=== PATIENT | female | born 1980 | race Caucasian/White ===

== ENCOUNTER 2019-06-03 00:24 | Day surgery (SDC) | payer OTHER, SELFPAY ==
[2019-06-01 08:28] VITALS: BMI 35.4
[2019-06-03 06:31] VITALS: BP 159/95; PULSE 80; RESP 18; TEMP 36.6; O2SAT 98
--- NOTE | 2019-06-03 06:39 | P.PNAN_ITS ---
Anes - Initial Pre Proc Eval Procedure: Operation Date: 06/03/19 07:30 Proposed Procedures p Esophagogastroduodenoscopy - Ran Biswas MD Date/Time: 06/03/19 06:39 Surgeon: Ran Biswas MD Pre Op Diagnosis: Dyshphagia Patient Data Age: 39 Gender: F Height: 5 ft 9 in Weight: 109 kg Last Vital Signs Temp 36.6 C 06/03/19 06:31 Pulse 80 06/03/19 06:31 Resp 18 06/03/19 06:31 BP 159/95 H 06/03/19 06:31 Pulse Ox 98 06/03/19 06:31 Allergies Allergy/AdvReac Type Severity Reaction Status Date / Time No Known Allergies Allergy Unknown Verified 06/03/19 06:28 Home Medications Medication Instructions Recorded Confirmed Type hdufaea-muwwduxjubgpa-sfsjkxze 2 tablet PO Q4-6H PRN 06/01/19 06/03/19 History [Excedrin Extra Strength] fexofenadine-pseudoephedrine 1 tablet PO QAM 06/01/19 06/03/19 History [Fabioal-D 24 Hour] ketorolac 10 mg PO DAILY PRN 06/01/19 06/03/19 History methocarbamol 750 mg PO DAILY PRN 06/01/19 06/03/19 History Patient hx anesthesia problems: none Family hx anesthesia problems: none [facility] Past Medical History Medical History (Updated 06/03/19 @ 06:42 by Tye Landaverde MD) Hx of migraines Anes - Eval Final PreProcedure Day of Procedure 06/03/19 06:39 Patient weight: obese Heart: regular rate and rhythm Lungs: clear to auscultation Airway: Mallampati scale class II Neurological: alert and oriented Last oral intake: >/= 8 hours ASA classification: II Emergent: no Anesthetic plan: proceed Anesthesia type and monitoring: general GIVS and standard monitoring Informed Consent: The patient's anesthetic plan and its attendant risks and benefits were discussed with the patient/family/POA. Questions were solicited and answers provided to the satisfaction of the patient/family/POA.
[2019-06-03] MEDS: LACTATED RINGERS 1,000 ML 150 ML IV CONT (06:42)
--- NOTE | 2019-06-03 07:01 | PM.HPGS ---
History of Present Illness History of Present Illness Consent: Risks, benefits, and alternatives have been discussed and questions answered. Patient agrees to proceed with procedure. Chief complaint: Dyshphagia Narrative: Deborah Garcia is a 39 year old W female Referred for EGD secondary to greater than 5 year history of intermittent dysphagia for both liquids and solids. Patient points to the cervical region. He states he is is probably worse with solids. She denies any significant heartburn or indigestion. No nausea vomiting hematemesis. She does take Excedrin and ibuprofen on a fairly regular basis for chronic headaches. She has had no weight loss. She had not been placed on any empiric therapy. No known food allergies. [facility] Past Medical History Medical History Hx of migraines Meds Home Medications and Allergies Home Medications Medication Instructions Recorded Confirmed Type hquhpro-tuzaiydfckvdg-wwomitma 2 tablet PO Q4-6H PRN 06/01/19 06/03/19 History [Excedrin Extra Strength] fexofenadine-pseudoephedrine 1 tablet PO QAM 06/01/19 06/03/19 History [Fabiola-D 24 Hour] ketorolac 10 mg PO DAILY PRN 06/01/19 06/03/19 History methocarbamol 750 mg PO DAILY PRN 06/01/19 06/03/19 History Allergies Allergy/AdvReac Type Severity Reaction Status Date / Time No Known Allergies Allergy Unknown Verified 06/03/19 06:28 Vital Signs Vital Signs - 24 hr 06/03/19 06:31 Temperature 36.6 C Pulse Rate 80 Respiratory Rate 18 Blood Pressure 159/95 H Pulse Oximetry 98 Exam Const: Orientation/consciousness: patient oriented x3 Resp: Auscultation: clear to auscultation bilaterally Cardio: Rate: regular rate Rhythm: regular rhythm Heart sounds: no murmurs GI: GI Palp: Yes Soft to palpation, No Tenderness to palpation present (GI), Yes No hepatosplenomegaly present and No Palpable mass present Auscultation: normal bowel sounds Neuro: General: patient oriented x3 and no focal motor deficits Extrem: General: no pedal edema Assessment and Plan Additional Plan EGD with possible esophageal dilatation for evaluation of dysphagia
[2019-06-03] MEDS: BENZOCAINE (*SP) 60 ML SPRAY CAN (HURRICAINE) 1 SPRAY MUCOUS MEM (07:23)
[2019-06-03 07:34] VITALS: BP 124/76; PULSE 82; RESP 21; O2SAT 98
[2019-06-03 07:44] VITALS: BP 104/85; PULSE 75; RESP 17; O2SAT 98
[2019-06-03 07:54] VITALS: BP 126/84; PULSE 74; RESP 16; O2SAT 99
== END 2019-06-03 08:10 | disposition home or self-care (01) ==
PROVIDERS: PCP Nurse Practitioner Family; Visit Provider Internal Medicine Gastroenterology
PROC: 0DJ08ZZ Inspection of Upper Intestinal Tract, Via Natural or Artificial Opening Endoscopic (ICD-10-PCS; CPT 43235; principal; 2019-06-03 07:30)
DX: R13.10 Dysphagia, unspecified (principal); K21.0 Gastro-esophageal reflux disease with esophagitis; K29.50 Unspecified chronic gastritis without bleeding; E66.9 Obesity, unspecified; Z68.35 Body mass index [BMI] 35.0-35.9, adult
CPT/HCPCS: 43239; 87081; 88305; J2704; J7120

== ENCOUNTER 2020-02-10 10:07 | Outpatient (CLI) | payer OTHER, SELFPAY ==
[2020-02-10 10:33] LABS: Hematocrit 34.3 % (37.0-47.0); Hemoglobin 10.9 g/dL (12.0-15.0)
== END 2020-02-10 10:08 | disposition home or self-care (01) ==
PROVIDERS: PCP Nurse Practitioner Family; Visit Provider Obstetrics & Gynecology
DX: N92.6 Irregular menstruation, unspecified (principal)
CPT/HCPCS: 36415; 85014; 85018

== ENCOUNTER 2020-02-12 01:06 | Outpatient (CLI) | payer OTHER, SELFPAY ==
[2020-02-12 20:27] LABS: SARS-CoV-2 RNA PCR Negative
== END 2020-02-12 01:07 | disposition home or self-care (01) ==
LOC: ANHCOVIDDT 01:07
PROVIDERS: PCP Nurse Practitioner Family; Visit Provider Obstetrics & Gynecology
DX: Z01.812 Encounter for preprocedural laboratory examination (principal); Z20.828 Contact with and (suspected) exposure to other viral communicable diseases
CPT/HCPCS: 87635; C9803; U0003

== ENCOUNTER 2020-02-15 00:40 | Day surgery (SDC) | payer OTHER, SELFPAY ==
[2020-02-03 14:15] VITALS: BMI 34.9
--- NOTE | 2020-02-10 07:47 | PM.IMHP ---
H&P: HPI History of Present Illness Date/Time: 02/10/20 07:47 Chief complaint: desires sterilization, irregular bleeding Narrative: Deborah Garcia is a 39 year old female 2 para 2 who is admitted for laparoscopic tubal ligation, hysteroscopy, dilatation curettage, and nerve ablation. She desires permanent irreversible sterilization. She also complains of heavy menstrual bleeding which has been refractory to medical therapy. Risks and benefits of these procedures were reviewed including but not exclusive of , aspiration pneumonia, bleeding, transfusion, perforation injury to bowel, bladder, ureters, or other internal organs with need for open laparotomy. She received the [employer]CO[employer] handout entitled sterilization for females, hysteroscopy, dilatation curettage, as well as the [facility]el[facility] nerve handout respectively. She had all questions answered. She asked to proceed Review of Systems Review of Systems: All systems reviewed & are unremarkable except as noted in HPI and below PMFSH Past Medical History Medical History Hx of migraines Social History Social History Smoking status: Never smoker Spiritual care concerns: No Meds Home Medications and Allergies Home Medications Medication Instructions Recorded Confirmed Type Fabiola-D 24 Hour 1 tablet PO QAM 06/01/19 02/03/20 History Excedrin Extra Strength 2 tablet PO Q4-6H PRN 06/01/19 02/03/20 History methocarbamol 750 mg PO DAILY PRN 06/01/19 02/03/20 History cholecalciferol (vitamin D3) 50 mcg PO DAILY 02/03/20 02/03/20 History [Vitamin D3] omeprazole 40 mg PO DAILY 02/03/20 02/03/20 History Allergies Allergy/AdvReac Type Severity Reaction Status Date / Time No Known Allergies Allergy Unknown Verified 02/03/20 14:16 Exam Const: General: no acute distress Eyes: General: appearance normal, both eyes and all related structures Neck: Neck: supple and no JVD Thyroid: thyroid normal Resp: Effort & Inspection: normal respiratory effort Auscultation: clear to auscultation bilaterally Cardio: Rate: regular rate Rhythm: regular rhythm GI: Inspection: non-distended GI Palp: Yes Soft to palpation, No Tenderness to palpation present (GI) and No Guarding due to palpation present (GI) Auscultation: normal bowel sounds : External Female Exam: normal external appearance Speculum Exam - Vagina: normal appearance of the vagina Speculum Exam - Cervix: normal appearance of the cervix Bimanual Exam- Adnexa, other: no masses Skin: General skin exam: no rashes or lesions noted Extrem: General: normal to inspection and no edema Psych: Mental Status: mental status grossly normal Affect: normal affect Assessment and Plan Additional Plan 1 of and with impression: Desires permanent sterilization and excessive bleeding Plan: Laparoscopic tubal ligation, hysteroscopy, dilatation curettage, the nerve ablation
[2020-02-15] VITALS (11 sets, daily range): BP systolic 108–145; BP diastolic 63–88; PULSE 75–103; RESP 14–20; TEMP 36.6–36.7; O2SAT 92–100
--- NOTE | 2020-02-15 06:12 | WPDHPUPDATE1 ---
History and Physical Update Update Date/Time: 02/15/20 06:12 History and Physical has been reviewed, including an updated exam of the patient. There are NO changes in the patient's condition. Risks, benefits, and alternatives have been discussed and questions answered. Patient agrees to proceed with procedure.
--- NOTE | 2020-02-15 08:16 | WPDANESEPPF ---
Anes - Initial Pre Proc Eval Procedure: Operation Date: 02/15/20 09:30 Proposed Procedures p Laparoscopic Bilateral Tubal Sterilization with Fallopian Rings - Tye Almazan MD s Hysteroscopy, Dilation and Curettage with Katy Ablation - Tye Almazan MD Date/Time: 02/15/20 08:16 Surgeon: Tye Almazan MD Pre Op Diagnosis: desires sterilization, irregular bleeding Patient Data Age: 39 Gender: F Height: 1.73 m Weight: 104.33 kg Allergies Allergy/AdvReac Type Severity Reaction Status Date / Time No Known Allergies Allergy Unknown Verified 02/03/20 14:16 Home Medications Medication Instructions Recorded Confirmed Type Fabiola-D 24 Hour 1 tablet PO QAM 06/01/19 02/15/20 History Excedrin Extra Strength 2 tablet PO Q4-6H PRN 06/01/19 02/15/20 History methocarbamol 750 mg PO DAILY PRN 06/01/19 02/15/20 History cholecalciferol (vitamin D3) 50 mcg PO DAILY 02/03/20 02/15/20 History [Vitamin D3] omeprazole 40 mg PO DAILY 02/03/20 02/15/20 History hydrocodone-acetaminophen 1 tablet PO Q6H PRN #30 tablet 02/15/20 Rx Patient hx anesthesia problems: none Family hx anesthesia problems: none PMFSH Past Medical History Medical History (Updated 02/15/20 @ 08:17 by Edison Hinojosa MD) Back pain Chronic GERD Hx of migraines Obesity Social History Social History Smoking status: Never smoker Spiritual care concerns: No Anes - Eval Final PreProcedure Day of Procedure 02/15/20 08:16 Patient weight: obese Heart: regular rate and rhythm Lungs: clear to auscultation and normal air movement Airway: Mallampati scale class II Neurological: alert and oriented Last oral intake: >/= 8 hours ASA classification: II Emergent: no Anesthetic plan: proceed Anesthesia type and monitoring: general ETT Informed Consent: The patient's anesthetic plan and its attendant risks and benefits were discussed with the patient/family/POA. Questions were solicited and answers provided to the satisfaction of the patient/family/POA.
[2020-02-15] MEDS: ACETAMINOPHEN 500 MG TABLET 1000 MG PO (08:19)
[2020-02-15] MEDS: LACTATED RINGERS 1,000 ML 30 ML IV CONT ×2 (08:20→10:19)
[2020-02-15] MEDS: KETOROLAC 15 MG/ML VIAL (*BKC) IV PUSH (08:47)
--- NOTE | 2020-02-15 10:14 | PM.PROC ---
Procedure Note - Detailed Date of procedure: 02/15/20 Pre-op diagnosis: desires sterilization, irregular bleeding Surgeon: Tye Almazan MD Postop diagnosis: Desires sterilization / irregular bleeding / endometrial polyp Procedure: Laparoscopic tubal ligation via silastic bands / hysteroscopy / dilatation curettage /polypectomy / endometrial ablation Anesthesia: General endotracheal EBL: 5cc Complications: None Findings: Normal-appearing ovaries and tubes. A mildly enlarged uterus. On hysteroscopy the uterus sounded to9.5cm. Thick endometrial tissue and a uterine polyp was seen Description of procedure: The patient was prepped and draped in the normal sterile fashion placed in the dorsal lithotomy position. Under excellent general endotracheal anesthesia weighted speculum placed posterior fornix of vagina. Anterior lip of the cervix grasped with a single-tooth tenaculum. The Lee's cannula inserted this is the cervix and attached to the single-tooth to be used later for uterine manipulation. Bladder was emptied of a large amount of clear urine. The weighted speculum was removed. Gloves were changed A supraumbilical incision made in the Veress needle passed in the abdomen. The abdomen filled with CO2 gas [id number]. The 5mm trocar advanced under direct visualization using the Optiview with no injury seen. The placed was placed in Trendelenburg. A suprapubic incision made the 8mm trocar advanced under direct visualization assuring no injury. The right fallopian tube was grasped and a good knuckle of tube formed with excellent blanching. The left fallopian tube was then grasped at its midportion a good knuckle of tube formed with excellent blanching. [id number] of serosanguineous fluid was seen and this was section from the pelvis. No other abnormalities were seen. The gas removed from the abdomen. The trocars removed. The incisions closed with 4 O Monocryl and glue. Attention was turned to the hysteroscopy. The uterus sounded to9.5cm. Serial dilatation with fragmented dilators performed followed by passes the 5mm visualizing hysteroscope using normal saline with visualizing medium. Thick endometrial tissue was seen and a uterine polyp was seen. The uterine polyp forceps remover was placed in the uterus and the polyp removed piecemeal. The uterus was then scraped over the entire 360? until a good grating sound was heard. When no further tissue could be removed the pia instrument was placed in the uterus. The uterus was burned for 120seconds. The instrument was removed. The hysteroscope was reinserted and a good burn was noted and 40 documentation. The instruments removed. All sponge, needle, instrument counts were correct. There were no immediate complications
--- NOTE | 2020-02-15 10:18 | SUR.OPER ---
100 hysteroscopy fluis in and 50 out
[2020-02-15] MEDS: fentaNYL CITRATE INJ (*CRX) 100 MCG/2 ML VIAL 25 MCG IV PUSH ×3 (10:33→11:03)
--- NOTE | 2020-02-15 10:55 | SUR.PHASEI ---
02 removed at 1050.
[2020-02-15] MEDS: ONDANSETRON INJ 4 MG/2 ML VIAL IV PUSH (11:40)
[2020-02-15] MEDS: SCOPOLAMINE 1.5 MG PATCH TRANSDERM (12:05)
[2020-02-15] MEDS: HALOPERIDOL LACTATE 5 MG/ML VIAL 1 MG IV PUSH (12:15)
== END 2020-02-15 13:39 | disposition home or self-care (01) ==
PROVIDERS: PCP Nurse Practitioner Family; Visit Provider Obstetrics & Gynecology
PROC: (CPT 58671; principal; 2020-02-15 09:30)
PROC: 0U5B8ZZ Destruction of Endometrium, Via Natural or Artificial Opening Endoscopic (ICD-10-PCS; CPT 58563; 2020-02-15 09:30)
DX: Z30.2 Encounter for sterilization (principal); N92.6 Irregular menstruation, unspecified; N84.0 Polyp of corpus uteri; K21.9 Gastro-esophageal reflux disease without esophagitis; E66.9 Obesity, unspecified; Z68.34 Body mass index [BMI] 34.0-34.9, adult; Z79.899 Other long term (current) drug therapy
CPT/HCPCS: 58671; 58563; 88305; A4264; A9270; J0330; J1100; J1630; J1885; J2250; J2405; J2704; J3010; J7030; J7120

== ENCOUNTER 2021-02-07 08:54 | Outpatient (CLI) | payer OTHER, SELFPAY ==
[2021-02-07 10:07] LABS: Basophils Absolute Auto 0.1 K/mm3 (0.0-0.1); Eosinophils Absolute Auto 0.2 K/mm3 (0-0.3); Eosinophils Percent Auto 2.8 % (0-4.4); Hematocrit 35.2 % (37.0-47.0); Hemoglobin 11.6 g/dL (12.0-15.0); Immature Granulocyte Absolute 0.02 K/mm3 (0.00-0.031); Immature Granulocyte Percent A 0.3 % (0-0.5); Lymphocytes Absolute Auto 1.48 K/mm3 (0.9-3.2); Lymphocytes Percent Auto 24.5 % (18.3-44.2); Mean Corpuscular Hemoglobin 27.6 pg (26-34); Mean Corpuscular Volume 83.8 fl (80-100); Mean Platelet Volume 10.3 fl (7.4-10.4); Monocytes Absolute Auto 0.5 K/mm3 (0.1-0.6); Monocytes Percent Auto 7.9 % (2.6-8.5); Neutrophils Absolute Auto 3.8 K/mm3 (1.3-6.7); Neutrophils Percent Auto 63.5 % (45.5-73.1); Platelet Count Result 253 k/mm3 (150-375); Red Cell Distribution Width 12.7 % (11.5-14.5); White Blood Count 6.1 K/mm3 (4.5-10.0)
[2021-02-07 10:31] LABS: Rheumatoid Factor < 8.6 IU/ML (<12)
[2021-02-07 10:32] LABS: Alanine Aminotransferase 19 U/L (4-35); Albumin Level 4.3 g/dL (3.5-5.1); Alkaline Phosphatase 49 U/L (38-126); Anion Gap 9 mmol/L (8-16); Aspartate Amino Transferase 22 U/L (14-36); Bilirubin,Total 0.3 mg/dL (0.2-1.3); Blood Urea Nitrogen 13 mg/dL (7-17); CRP < 0.5 mg/dL (<1.0); Calcium 9.3 mg/dL (8.4-10.2); Carbon Dioxide 26 mmol/L (22-30); Chloride 105 mmol/L (98-107); Cholesterol 168 mg/dL (0-200); Estimated Glomerular Filt Rate > 60; Glucose 93 mg/dL (65-110); HDL Direct 45 mg/dL; Sodium 140 mmol/L (137-145); Triglycerides 108 mg/dL (<150); Uric Acid 2.9 mg/dL (2.5-7.5)
[2021-02-07 10:41] LABS: LDL Cholesterol Direct 92 mg/dL
[2021-02-07 10:54] LABS: Vitamin D 25 Hydroxy 29.8 ng/mL
[2021-02-07 11:18] LABS: Erythrocyte Sedimentation Rate 15 mm/hr (0-20)
[2021-02-07 12:05] LABS: Hemoglobin A1C 5.1 % (<5.7)
[2021-02-07 12:20] LABS: Folic Acid 5.1 ng/mL (2.76->20)
== END 2021-02-07 08:55 | disposition home or self-care (01) ==
PROVIDERS: PCP Nurse Practitioner Family; Visit Provider Nurse Practitioner Family
DX: M25.50 Pain in unspecified joint (principal); Z13.0 Encounter for screening for diseases of the blood and blood-forming organs and certain disorders involving the immune mechanism; Z13.1 Encounter for screening for diabetes mellitus; Z13.29 Encounter for screening for other suspected endocrine disorder; Z13.9 Encounter for screening, unspecified
CPT/HCPCS: 36415; 80053; 80061; 82306; 82607; 82746; 83036; 84443; 84550; 85025; 85652; 86038; 86140; 86430

== ENCOUNTER 2021-04-03 07:51 | Outpatient (CLI) | payer OTHER, SELFPAY ==
--- NOTE | ~2021-04-03 | XR_ITS ---
EXAMINATION: XR lumbar spine 2-3V DATE: 04/03/2021 08:10 INDICATION: Right posterior low back pain TECHNIQUE: Anteroposterior and lateral views of the lumbar spine, and cone-down lateral view of the l umbosacral junction were obtained. COMPARISON: None. FINDINGS: 14 degree dextro scoliosis measured between L1 and L4. 3 mm retrolisthesis L2 on L3. Chronic appearin g mild anterior wedging at T11. More caudal vertebral body heights are normal. Mild to moderate disc height loss at T10-T11, T11-T12 and L2-L3. Mild disc height loss at T12-L1, L1-L2, L4-L5 and L5-S1. S acrum and bilateral sacroiliac joints are normal. Couple round likely tubal ligation rings in the lef t and right pelvis. Bowel gas pattern is unremarkable. IMPRESSION: 1. 14 degree lumbar dextroscoliosis with mild to moderate lumbar and lower thoracic spondylosis. Reviewed, dictated and finalized at [facility]. UCT AMBASSADOR IMPRESSION: 1. 14 degree lumbar dextroscoliosis with mild to moderate lumbar and lower thor acic spondylosis.
== END 2021-04-03 07:52 | disposition home or self-care (01) ==
LOC: ANHIMG 07:54
PROVIDERS: PCP Nurse Practitioner Family; Visit Provider Nurse Practitioner Family
DX: M47.894 Other spondylosis, thoracic region (principal); M47.896 Other spondylosis, lumbar region
CPT/HCPCS: 72100

== ENCOUNTER 2021-05-02 07:59 | Outpatient (CLI) | payer OTHER, SELFPAY ==
--- NOTE | ~2021-05-02 | MM_ITS ---
EXAMINATION: MM screening federico BI w bri HISTORY: Screening mammogram TECHNIQUE: Craniocaudal and mediolateral oblique 3-D tomosynthesis images were obtained and synthetic 2-D images were generated. CAD analysis was submitted and interpreted. COMPARISON: No prior mammogram is available for comparison at this institution. BREAST PARENCHYMAL COMPOSITION: The breasts are heterogeneously dense, which may obscure small masses . FINDINGS: There is no evidence of suspicious mass, calcification, or architectural distortion to sugg est malignancy in either breast. IMPRESSION: 1. No mammographic evidence of malignancy. 2. Recommend routine screening mammography in one year. BI-RADS Category 1: Negative Reviewed, dictated and finalized at location A. ITORY SALES MANAGER
== END 2021-05-02 08:00 | disposition home or self-care (01) ==
PROVIDERS: PCP Nurse Practitioner Family; Visit Provider Nurse Practitioner Family
DX: Z12.31 Encounter for screening mammogram for malignant neoplasm of breast (principal)
CPT/HCPCS: 77063; 77067

== ENCOUNTER 2021-07-04 08:30 | Outpatient (RCR) | payer OTHER, SELFPAY ==
--- NOTE | 2021-05-15 10:50 | PTOPEVAL ---
PHYSICAL THERAPY INITIAL EVALUATION. Thank you for referring Deborah Garcia to [facility].? The patient is scheduled to be seen for therapy? 1x/week for 4 weeks. Please review, sign, date and return this plan of care SAAD. I agree with and certify that the following plan of care is medically necessary. Referring Physician Date Attending Provider: Tess Maldonado, LOAN SERVICE OFFICER-BC Diagnosis Dextroscoliosis Onset Apr Subjective Information Pt states she has a history of Query Text:As Reported By Patient/ scoliosis. She reports she Family hurt her back in April of 2019 during an exercise program at home. She states it started out at a tightness that she contributed to her exercise program. She states prior to this she was going HIIT style exercises and since then has just been doing body weight exercises. Pt reports the tightness is still present in her back, primarily the right side, sometimes this catches her during movements. She states in the last year she has also been having a lot of joint pain all over her body with a new increase in her hands and feet, a inflammatory marker assessment was done and this was negative for autoimmune involvement. 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 Pt states she wakes up at night due to pain and stiffness when trying to readjust in bed. Pt states she has been having severe migraines where the pain is so severe she is nausea from it. Pain Assessment Neck Reported Pain Level 1 Pain Description Aching,Tightness Pain Frequency Intermittent Lowest Pain Intensity
--- NOTE | 2021-06-12 08:45 | PTOPEVAL ---
PHYSICAL THERAPY PROGRESS NOTE. Thank you for referring Deborah Garcia to [facility].? The patient is scheduled to be seen for therapy? 1x/week for 4 weeks. Please review, sign, date and return this plan of care SAAD. I agree with and certify that the following plan of care is medically necessary. Referring Physician Date Attending Provider: Tess Maldonado, DRILL DOCTOR-BC *PT Outpatient Evaluation Start: 05/15/21 Evaluation Information Subjective Information Pt states her back pain is Query Text:As Reported By Patient/ almost completely gone, that Family her neck pain is still what has been bothering her. She states this previously week has been her best for her next pain. Pt states she thinks thinks the dry needling and addition of new stretches last week has helped, she also mentioned she has had a light case load at work. Pt states she did have a back spasm on Saturday and it still feels a little tight today. Pt report she has not had a migraine in the last 2 weeks. Pain Assessment Neck Reported Pain Level 1 Pain Description Tightness Greatest Pain Intensity 5 Right Lower Back Reported Pain Level 1 Pain Description Tightness Interventions Used Interventions Used By Clinicians Dry Needling Cervical and Lumbar ROM Active Cervical ROM Cervical Flexion (0-60) 60 Cervical Extension (0-70) 55 Cervical Lateral Flexion Right (0-50) 28 Cervical Lateral Flexion Left (0-50) 38 Cervical Rotation Right (0-90) 60 Cervical Rotation Left (0-90) 45 Cervical ROM 75% of Normal Cervical ROM Comments NO pain reports with ROM Lumbar ROM Lumbar Flexion Active Floor Lumbar Extension (0-40) 35 Lateral Flexion 3 inch above lateral knee Query Text:Active Hands to: joint line bilaterally. Pulling sensation in R lumbar spine with both movements Lateral Rotation Right (0-45) 35 Lateral Rotation Left (0-45) 35 Lumbar ROM 75% of Normal Lumbar Comments Pain with lumbar extension present on the R side PT Clinical Summary Deborah present to therapy today for her 4 week re- assessment. She reports other
--- NOTE | 2021-07-10 08:40 | PCPTNOTE ---
Patient called & cancelled scheduled progress report this date due to her daughter being sick. She states she is going to call back to reschedule.
--- NOTE | 2021-07-31 12:58 | PCPTNOTE ---
Called patient to follow up and left a voicemail. She has not called to reschedule her re-evaluation. Left message stating that if she does not call within a week to schedule she will be discharged.
--- NOTE | 2021-08-07 14:39 | PCPTNOTE ---
Attending Provider: Tess Maldonado, FACTORY MANAGER-BC Patient:Deborah Garcia Date of :1980 Patient has not returned for any further treatments since 07/04/2021, therefore she will be discharged at this time. Patient?s initial visit was on 05/15/2021 09:15 and she had a total of 7 visits. Thank you for referring this patient to [facility]. Please review, sign, date and return this discharge summary SAAD. I have been updated about the patient's current status and I agree with discharge from the above service at this time. Referring Physician Date
== END 2021-08-08 10:46 | disposition home or self-care (01) ==
LOC: ANHPT 08:30
PROVIDERS: PCP Nurse Practitioner Family; Visit Provider Nurse Practitioner Family
DX: M41.9 Scoliosis, unspecified (principal)
CPT/HCPCS: 20560; 97014; 97110; 97112; 97140; 97161; G0283

== ENCOUNTER 2021-07-14 07:58 | Outpatient (CLI) | payer OTHER, SELFPAY ==
--- NOTE | 2021-07-18 16:51 | WPDHOMESLEEP ---
Sleep Study - Home Unattended Date of Study: 07/14/21 Ordering Provider: Tess Maldonado, CONCESSION WORKER- Interpreting Provider: Sherrie Sales, DO Home Sleep Study Type: Watch PAT Height: 1.73 m Weight: 102.058 kg Body Mass Index: 34.2 Neck Circumference (inches): 15 Nelson: 11 Reason for Sleep Study Unrefreshing sleep and daytime hypersomnia. Sleep History The patient is a 41-year-old female with seasonal allergies, vitamin-D deficiency, lumbago, dextroscoliosis and lower extremity edema that had a home sleep test ordered by her primary care due to unrefreshing sleep. 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 The patient rarely awakens from sleep short of breath. She rarely awakens at night with heartburn, belching or cough. She constantly snores loud enough that others complain. She denies having trouble sleeping when she has a cold. She rarely wakes up gasping for air throughout the night. She occasionally has breathing problems at night observed by herself or others. She occasionally sweats excessively at night. She denies heart palpitations or irregular heartbeats during the night. She frequently falls asleep during the day but never while driving. She denies sleep paralysis and cataplexy. She frequently has vivid dreamlike scenes upon awakening or falling asleep. She denies having trouble at work due to sleepiness. She denies feeling afraid of going to sleep. She frequently has nightmares. She frequently remembers her dreams. She occasionally has thoughts racing through her mind. She rarely feels sad or depressed. She occasionally has anxiety. She constantly has muscular tension. She denies noticing parts of her body jerk. She denies kicking during the night. She frequently has crawling and aching feelings in her legs and occasionally has leg pain during the night. She denies grinding her teeth during sleep awakening with morning jaw pain. She is frequently bothered by pain during the day and occasionally awakened by pain during the night. He occasionally wakes up feeling stiff the morning with sore or achy muscles. She frequently wakes up with pain in the neck, spine and other joints. She goes to bed at midnight on weekdays and 10:00 a.m. on the weekends. It takes her a few minutes to fall asleep. She wakes up 1-3 times throughout the night. When she awakens, she will read, watch TV or do laundry. She wakes up at 4:00 a.m. on weekdays and 5:00 p.m. on the weekends. She typically gets 4-6 hours of sleep per night time she will stay in bed for a few minutes after waking up. She currently lives with her and 2 kids. She works midnights on the weekend and switches back to a day schedule on her days off. She denies consuming any caffeinated beverages within 2 hours of bedtime. She does not engage in physical exercise before bedtime. She will read watch television before falling asleep. She will take naps in the afternoon or the evening but they are not refreshing. She drinks 1-3 caffeinated beverages per day. She denies tobacco, alcohol recreational drug use. [facility] Past Medical History Medical History Back pain Chronic GERD Hx of migraines Obesity Social History Social History Smoking status: Never smoker Spiritual care concerns: No Medications Home Medications Medication Instructions Recorded Confirmed Type Fabiola-D 24 Hour 1 tablet PO QAM 06/01/19 02/15/20 History Excedrin Extra Strength 2 tablet PO Q4-6H PRN 06/01/19 02/15/20 History methocarbamol 750 mg PO DAILY PRN 06/01/19 02/15/20 History cholecalciferol (vitamin D3) 50 mcg PO DAILY 02/03/20 02/15/20 History [Vitamin D3] omeprazole 40 mg PO DAILY 02/03/20 02/15/20 History hydrocodone-acetaminophen 1 tablet PO Q6H PRN #30 tablet 02/15/20 Rx Sleep Procedure The sleep study was completed using [employer]
[2021-07-18 17:06] VITALS: BMI 34.2
== END 2021-07-18 12:13 | disposition home or self-care (01) ==
LOC: ANHCSM 08:00
PROVIDERS: PCP Nurse Practitioner Family; Visit Provider Nurse Practitioner Family
DX: G47.33 Obstructive sleep apnea (adult) (pediatric) (principal)
CPT/HCPCS: 95800

== ENCOUNTER 2021-08-08 07:27 | Outpatient (CLI) | payer OTHER, SELFPAY ==
[2021-08-08 08:00] LABS: Hematocrit 36.5 % (37.0-47.0); Hemoglobin 11.7 g/dL (12.0-15.0); Mean Corpuscular HGB Conc 32.1 g/dl (32-36); Mean Corpuscular Hemoglobin 27.5 pg (26-34); Mean Corpuscular Volume 85.9 fl (80-100); Platelet Count Result 283 k/mm3 (150-375); Red Blood Count 4.25 M/mm3 (4.2-5.4); Red Cell Distribution Width 12.4 % (11.5-14.5); White Blood Count 8.7 K/mm3 (4.5-10.0)
[2021-08-08 08:44] LABS: Iron 53 ug/dL (37-170)
[2021-08-08 08:54] LABS: Percent Iron Saturation 11 % (20-50)
[2021-08-08 09:19] LABS: Folic Acid 6.5 ng/mL (2.76->20)
== END 2021-08-08 07:28 | disposition home or self-care (01) ==
LOC: ANHLAB 07:33
PROVIDERS: PCP Nurse Practitioner Family; Visit Provider Nurse Practitioner Family
DX: G47.33 Obstructive sleep apnea (adult) (pediatric) (principal)
CPT/HCPCS: 36415; 82607; 82728; 82746; 83540; 83550; 85027

== ENCOUNTER 2022-05-12 11:08 | Outpatient (CLI) | payer OTHER, SELFPAY ==
--- NOTE | ~2022-05-12 | MM_ITS ---
EXAMINATION: MM screening federico BI w bri HISTORY: Screening mammogram TECHNIQUE: Craniocaudal and mediolateral oblique 3-D tomosynthesis images were obtained and synthetic 2-D images were generated. CAD analysis was submitted and interpreted. COMPARISON: No prior mammogram is available for comparison at this institution. BREAST PARENCHYMAL COMPOSITION: The breasts are heterogeneously dense, which may obscure small masses . FINDINGS: There is no evidence of suspicious mass, calcification, or architectural distortion to sugg est malignancy in either breast. There has been no suspicious interval change. IMPRESSION: 1. No mammographic evidence of malignancy. 2. Recommend routine screening mammography in one year. BI-RADS Category 1: Negative Reviewed, dictated and finalized at location A. NE BUILDUP MECHANIC
== END 2022-05-12 11:09 | disposition home or self-care (01) ==
LOC: ANHIMG 11:10
PROVIDERS: PCP Nurse Practitioner Family; Visit Provider Nurse Practitioner Family
DX: Z12.31 Encounter for screening mammogram for malignant neoplasm of breast (principal)
CPT/HCPCS: 77063; 77067

== ENCOUNTER → 2022-11-09 12:27 | Outpatient (CLI) | payer OTHER, SELFPAY ==
--- NOTE | ~2022-11-09 | MR_ITS ---
MRI of the lumbar spine Clinical History: Sciatica Technique: Axial T2-weighted images, and sagittal T1-weighted, T2-weighted, and and T2 fat-sat images were acquired. Findings: No fracture. There is minimal grade 1 retrolisthesis of L2 over L3. No suspicious bone junior ow signal reality seen. At L1-L2, there is no disc bulge or herniation. There is moderate facet arthropathy. No spinal canal stenosis or neural foraminal narrowing. At L2-L3, there is moderate degenerative disc narrowing. There is minimal disc bulge and mild facet a rthropathy. No central canal stenosis or neural foraminal narrowing. At L3-L4, there is no disc bulge or herniation. No spinal canal stenosis or neural foraminal narrowin g. At L4-L5, there is no disc bulge or herniation. There is no spinal canal stenosis or neural foraminal narrowing. At L5-S1, there is right paracentral disc protrusion. No spinal canal stenosis or neural foraminal na rrowing. There may be focal impingement of the descending right S1-S2 level nerve root by the disc pr otrusion. Paravertebral soft tissues are unremarkable. Impression: Right paracentral disc protrusion at L5-S1, which probably focally impinges the descending right S1-S 2 level nerve root. Minimal grade 1 retrolisthesis of L2 over L3. Reviewed, dictated and finalized at [facility]. Impression: Right paracentral disc protrusion at L5-S1, which probably focally impinges the descending right S1-S2 level nerve root. Minimal grade 1 retrolisthesis of L2 over L3.
== END ==
PROVIDERS: PCP Nurse Practitioner Family; Visit Provider Nurse Practitioner Family
DX: M54.41 Lumbago with sciatica, right side (principal); M51.27 Other intervertebral disc displacement, lumbosacral region; M43.16 Spondylolisthesis, lumbar region
CPT/HCPCS: 72148

== ENCOUNTER 2023-05-09 08:00 | Outpatient (RCR) | payer OTHER, SELFPAY ==
--- NOTE | 2023-04-04 08:44 | PTOPEVAL1 ---
Assessment and note entered by Ariel Bee Evaluation Information Assessment Status Evaluation Diagnosis low back pain Onset 07/07/22 Subjective Information Pt. reports that she was bathing a pt. at work and developed pain in the back in July. She states that the pain has progressed into the right leg. Pain can radiate to the foot. She states that her pain is constant. She reports that pain is worsened with sitting down. She recalls nothing specific that will ease her pain. She reports that being on her feet for 1 hour will also result in an increase in pain. She describes her pain into the right l.e. as a sharp ache. She states that on severe flare ups the leg will become weak. She has undergone MRI which revealed a disc protrusion. 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 She reports she is fearful of having to bend forward. Usual household activities, such as sweeping and mopping have also become difficult . She reports that her goal for therapy is to reduce her leg pain. Reported Pain Level Pain Score 3: Self Report Assessment PT Clinical Summary Pt. is a 43 year old female who enters the clinic with low back pain with right l.e. radiculopathy. She is provided extension category exercises on this date. She currently presents with proximal l. e. weakness, abdominal weakness, impaired postural awareness, impaired flexibility and pain. Continued skilled PT is indicated in order to improve these areas to allow the pt. to be able to complete all IADL's with improved comfort and efficiency. Plan of Care Interventions Electrical Stimulation,Hot Pack/Cold Pack,Manual Therapy,Mechanical Traction,Neuro Re-education, Patient/Caregiver Educati,Therapeutic Activities, Therapeutic Exercise PT Services Indicated Yes Treatment Frequency and 2x/week x 10 visits Duration These treatments will address the objective and functional deficits as defined above. The patient will be advanced safely and appropriately in order for the patient to progress towards his/her prior level of function. Additional exercises will be introduced and as well as a comprehensive home exercise program upon discharge, if needed, ?to ensure carryover of functional gains achieved in the clinic. This treatment plan has been reviewed and agreement upon by the patient.
--- NOTE | 2023-04-04 08:45 | OPREHPOC ---
Outpatient Therapy Plan of Care This is a Multidisciplinary Plan of Care that may contain components documented by all disciplines (PT, OT, and ST.) PT Problem 1 PT Problem #1 Knowledge Deficit PT Goal 1 Goal Pt. will be independent with a HEP focusing on extension category activities. Target Visit 2 PT Problem 2 PT Problem #2 Pain PT Goal 1 Goal Pt. will report pain levels at 4/10 at worst in a 2 week period. Target Visit 10 PT Problem 3 PT Problem #3 Impaired Flexibility PT Goal 1 Goal Pt. will present with 15 degrees or less with the 90/90 test on the right. Target Visit 10 PT Problem 4 PT Problem #4 Impaired Functional Mobil PT Goal 1 Goal Pt. will demonstrate safe mechanics with floor to waist lift x 10 reps with object weight 15-20#. Target Visit 10 PT Goal 2 Goal Pt. will provided subjective reports of being able to stand for duration of 1 hour without symptoms noted into the right l.e. Target Visit 10
--- NOTE | 2023-05-09 08:58 | PTOPPROGNS ---
Assessment and note entered by Ariel Bee Discharge Information Assessment Status discharge Diagnosis low back pain Onset 07/07/22 Subjective Information Pt. reports that her status hasn't changed much. She reports that she does notice that she does feel better when she is more consistent with her stretching activities, but has had a busy schedule this week and has been a little less consistent. She continues to describe her pain radiating into the right buttock. She states that she is not taking ibuprofen as often and states that pain frequency has decreased. She is doing chiropractic adjustments once a month as well. Assessment PT Clinical Summary Pt. demonstrates decrease in pain reports in regards to frequency and intensity. She has been educated regarding safe body mechanics and currently has a comprehensive HEP. At this time she is encouraged to continue with her HEP and will be discharged from our care. Plan of Care PT Services Indicated Treatment Frequency and D/C from PT to an independent HEP. Duration These treatments will address the objective and functional deficits as defined above. The patient will be advanced safely and appropriately in order for the patient to progress towards his/her prior level of function. Additional exercises will be introduced and as well as a comprehensive home exercise program upon discharge, if needed, ?to ensure carryover of functional gains achieved in the clinic. This treatment plan has been reviewed and agreement upon by the patient.
== END 2023-05-22 14:57 | disposition home or self-care (01) ==
LOC: ANHPT 08:00
PROVIDERS: PCP Nurse Practitioner Family; Visit Provider Pain Medicine Pain Medicine
DX: M54.16 Radiculopathy, lumbar region (principal)
CPT/HCPCS: 97012; 97014; 97110; 97112; 97161; 97530; G0283

== ENCOUNTER 2023-07-01 07:41 | Outpatient (CLI) | payer OTHER, SELFPAY ==
[2023-07-01 08:05] LABS: Hematocrit 34.7 % (37.0-47.0); Hemoglobin 10.6 g/dL (12.0-15.0); Mean Corpuscular HGB Conc 30.5 g/dl (32-36); Mean Corpuscular Hemoglobin 25.4 pg (26-34); Platelet Count Result 278 k/mm3 (150-375); Red Blood Count 4.18 M/mm3 (4.2-5.4); Red Cell Distribution Width 12.6 % (11.5-14.5); White Blood Count 7.3 K/mm3 (4.5-10.0)
[2023-07-01 08:15] LABS: Hemoglobin A1C 5.3 % (<5.7)
[2023-07-01 08:16] LABS: Alanine Aminotransferase 15 U/L (6-35); Albumin Level 4.4 g/dL (3.5-5.1); Alkaline Phosphatase 57 U/L (38-126); Anion Gap 6 mmol/L (8-16); Aspartate Amino Transferase 20 U/L (14-36); Bilirubin,Total 0.4 mg/dL (0.2-1.3); Blood Urea Nitrogen 15 mg/dL (7-17); Calcium 9.4 mg/dL (8.4-10.2); Carbon Dioxide 26 mmol/L (22-30); Chloride 105 mmol/L (98-107); Cholesterol 163 mg/dL (0-200); Estimated Glomerular Filt Rate > 60; Glucose 96 mg/dL (65-110); HDL Direct 43 mg/dL; Potassium 3.7 mmol/L (3.4-5.0); Sodium 137 mmol/L (137-145); Triglycerides 125 mg/dL (<150)
[2023-07-01 08:30] LABS: LDL Cholesterol Direct 94 mg/dL
[2023-07-01 08:53] LABS: Free T4 Free Thyroxine 0.81 ng/mL (0.78-2.19)
[2023-07-04 11:40] LABS: Vitamin D 1,25 (OH)2 Total 42 pg/mL (18-72); Vitamin D2 1,25 (OH)2 <8 pg/mL; Vitamin D3 1,25 (OH)2 42 pg/mL
== END 2023-07-01 07:42 | disposition home or self-care (01) ==
LOC: ANHLAB 07:43
PROVIDERS: PCP Nurse Practitioner Family; Visit Provider Nurse Practitioner Family
DX: Z13.0 Encounter for screening for diseases of the blood and blood-forming organs and certain disorders involving the immune mechanism (principal); E03.9 Hypothyroidism, unspecified; E53.8 Deficiency of other specified B group vitamins; Z13.29 Encounter for screening for other suspected endocrine disorder; Z13.220 Encounter for screening for lipoid disorders; Z13.1 Encounter for screening for diabetes mellitus; Z13.21 Encounter for screening for nutritional disorder
CPT/HCPCS: 36415; 80053; 80061; 82607; 82652; 83036; 84439; 84443; 85027

== ENCOUNTER 2023-12-30 08:36 | Outpatient (CLI) | payer OTHER, SELFPAY ==
--- NOTE | ~2023-12-30 | MM_ITS ---
EXAMINATION: MM screening federico BI w bri HISTORY: Screening TECHNIQUE: Craniocaudal and mediolateral oblique 3-D tomosynthesis images were obtained and synthetic 2-D images were generated. CAD analysis was submitted and interpreted. COMPARISON: Comparison to multiple prior studies sequentially, with oldest reviewed study dated 05/02. BREAST PARENCHYMAL COMPOSITION: Dense: The breasts are heterogeneously dense, which may obscure small masses FINDINGS: There is no evidence of suspicious mass, calcification, or architectural distortion to sugg est malignancy in either breast. There has been no suspicious interval change. IMPRESSION: 1. No mammographic evidence of malignancy. 2. Recommend routine screening mammography in one year. BI-RADS Category 1: Negative Reviewed, dictated and finalized at location B.
== END 2023-12-30 08:37 | disposition home or self-care (01) ==
LOC: ANHIMG 08:38
PROVIDERS: PCP Nurse Practitioner Family; Visit Provider Nurse Practitioner Family
DX: Z12.31 Encounter for screening mammogram for malignant neoplasm of breast (principal)
CPT/HCPCS: 77063; 77067

== ENCOUNTER 2024-11-16 07:45 | Outpatient (CLI) | payer BC, SELFPAY ==
--- OUTSIDE RECORDS SUMMARY | 2024-11-16 07:48 | XMS_ITS | Clinical Summary ---
Author Organization [facility] [employer] [facility] Address [address] [place] [address] Care Team Providers Care Corking Machine Operator Name Role Phone Tess Maldonado APRN-OPEN HEARTH LABORER Primary Care Provider Source Comments [facility] [employer] [facility],non-owned Affiliates and Associated Physician Practices is amultiple site organization consisting of ambulatory clinics and hospital sitesin [place], [place], [place] and [place]. This disclosure is being madepursuant to the Care Everywhere program and may not contain all information available regarding this patient. Last updated 17.[facility] [employer] [facility] Allergies No known active allergies Medications * Be aware that medications may not be up to date on this document. Alwaysverify current medications with the patient. 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 Gender Identity Female 01/16/2023 2:21 AM CDT Sexual Orientation Not on file Last Filed Vital Signs Vital Sign Reading Time Taken Comments Blood Pressure 124/87 01/29/2023 9:30 AM CDT Pulse 83 01/29/2023 9:30 AM CDT Temperature 36.8 C (98.3 F) 01/29/2023 9:30 AM CDT Respiratory Rate 18 01/29/2023 9:30 AM CDT Oxygen Saturation 98% 01/29/2023 9:30 AM CDT Inhaled Oxygen Concentration - - Weight 106.5 kg (234 lb 12.8 oz) 01/29/2023 9:30 AM CDT Height 172.7 cm (5' 8) 01/29/2023 9:30 AM CDT Body Mass Index 35.7 01/29/2023 9:30 AM CDT Plan of Treatment Health Maintenance Due Date Last Done Comments LIPID TESTING 1980 MAMMOGRAM 1980 HIV SCREENING 1995 HEPATITIS C SCREENING 03/18/1998 DTAP/TDAP/TD VACCINES (1 - Tdap) 1999 HEPATITIS B VACCINE (1 of 3 - 19+ 3-dose series) 1999 PAP SMEAR 2001 HPV VACCINE (1 - 3-dose SCDM series) 2007 SCREENING FOR DIABETES 01/29/2023 COVID-19 VACCINE (1 - 2023-2 5 season) 2023 DEPRESSION SCREENING 04/08/2024 INFLUENZA VACCINE (#1) 2024 01/19/2019 ZOSTER VACCINE (1 of 2) 2030 HIB VACCINE Aged Out No longer eligi ble based on patient's age to complete this topic MENINGOCOCCAL (Group B) VACC INE SHARED DECISION-MAKING Aged Out No longer eligibl e based on patient's age to complete this topic MENINGOCOCCAL GROUPS A/C/Y/W VACCINE Aged Out No longer eligible b ased on patient's age to complete this topic PNEUMOCOCCAL VACCINE Aged Out No long er eligible based on patient's age to complete this topic Insurance [facility] Care Teams Corking Machine Operator Relationship Specialty Start Date End Date Tess Maldonado, FILM SORTER-OPEN HEARTH LABORER [address] [place] [phone] PCP - General Nurse Practitioner Family 01/29/23
--- OUTSIDE RECORDS SUMMARY | 2024-11-16 07:48 | XMS_ITS | Encounter Summary ---
Author Organization [facility] Address [address] [place] [address] Care Team Providers Care Greenhouse Specialist Name Role Phone Caden Maldonadoelle Jostin ESTRADA-SLOT SHIFT SUPERVISOR Primary Care Provider Encounter Details Date Type Department Care Team (Late st Contact Info) Description 12/25/2023 Lab Requisition [facility] - DermPath Lab 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 Gender Identity Female 01/16/2023 2:21 AM CDT Sexual Orientation Not on file documented as of this encounter Plan of Treatment Not on file documented as of this encounter Procedures Procedure Name Priority Date/Time Associated Diagnosis Comments DERMATOPATHOLOGY Routine 12/25/2023 10:3 2 AM CDT documented in this encounter Results * DERMATOPATHOLOGY (12/25/2023 10:32 AM CDT) Case Report Dermatopathology Report Case: [id number] Authorizing Provider: Linnette Cisse MD Collected: 12/25/2023 10:32 AM Ordering Location: [facility] - Received: 12/26/2023 07:19 AM DermPath Lab Pathologist: Mariel Matos MD Specimen: Skin, left lateral cheek 11:29 AM CDT DERMATOPATHOLOGY LABORATORY Final Diagnosis Specimen A. SKIN, left lateral cheek: INTRADERMAL MELANOCYTIC NEVUS (D22.39) 11:29 AM T DERMATOPATHOLOGY LABORATORY at 1129 CDT Clinical History Nevus 11:29 AM CDT DERMATOPATHOLOGY LABORATORY Gross Description Specimen A: Received is one formalin filled container labeled with the patient's name and designated left lateral cheek. The specimen consists of a shave biopsy measuring 7x6x2 mm. Jar 0. 11:29 AM CDT DERMATOPATHOLOGY LABORATORY Microscopic Description Specimen A. SKIN, left lateral cheek: There are nests of cytologically bland melanocytes within the dermis that mature with depth. 11:29 AM T DERMATOPATHOLOGY LABORATORY Disclaimer An external and internal positive and negative controls are appropriate for the histochemical, immunohistochemical and immunofluorescence stain(s) in this case (if any), except where stated explicitly. The performance characteristics of the stain(s) cited in this report were developed and its performance characteristic determined by the Dermatopathology Laboratory at [facility], directed by Dr. Alfonso Maldonado. These tests need not be, and therefore are not, approved by the [place] Food and Drug Administration. The tests are used for clinical purposes. Billing Codes Specimen Charges Stain Charges 46413 1 11:29 AM CDT DERMATOPATHOLOGY LABORATORY Embedded Images 11:29 AM CDT DERMATOPATHOLOGY LABORATORY Pathology/Cytolo gy TISSUE SPECIMEN FROM SKIN / Unknown 12/25/2023 10:32 AM CDT 12/26/2023 7:19 AM CDT Linnette Cisse MD LAB - PATHOLOGY/CYTOLOGY OR DERABLES Final Result DERMATOPATHOLOGY LABORATORY [facility] - Department of Dermatology [address], [address] [phone] documented in this encounter Visit Diagnoses Not on filedocumented in this encounter Care Teams Greenhouse Specialist Relationship Specialty Start Date End Date Tess Maldonado, DOWEL INSERTING MACHINE OPERATOR-SLOT SHIFT SUPERVISOR [address] [place] [phone] PCP - General Nurse Practitioner Family 01/29/23 documented as of this encounter
--- OUTSIDE RECORDS SUMMARY | 2024-11-16 07:48 | XMS_ITS | Clinical Summary ---
Author Organization [facility] Address [address] [place] [address] Care Team Providers Care Residential Child Care Counselor Name Role Phone Tess Maldonado DYE OPERATOR Primary Care Provider + Allergies No known active allergies Medications fexofenadine (ISABELLE) 60 mg tablet Take 1 tablet (60 mg total) by mouth daily Active ondansetron (ZOFRAN) 4 mg tablet Take 1 tablet (4 mg total) by mouth every 8 (eight) hours as needed for nausea or vomiting Active indomethacin (INDOCIN) 25 mg capsuleIndicatio ns:Migraine with aura and without status migrainosus, not intractable Take 1 capsule (25 mg total) by mouth 2 (two) times a day as needed for pain (pain). 30 capsule 1 8 Active Additional Information Patient not taking.Reported on 01/09/2024 SUMAtriptan (IMITREX) 50 mg tabletIndication s:Migraine Take 2 tablets (100 mg total) by mouth once as needed for migraine May repeat dose once in 2 hours if no relief. Do not exceed 2 doses in 24 hours. Active methocarbamoL (ROBAXIN) 750 mg tablet Take 1 tablet (750 mg total) by mouth 4 (four) times a day Active Active Problems Problem Noted Date Diagnosed Date Menorrhagia with regular cycle 01/09/2024 Assessment & Plan (01/09/2024 11:20 AM CDT): Discussed options as she has already undergone an ablation. Discussed possible consultation for hysterectomy with . She will let us know if she is interested. Seasonal allergic rhinitis due to pollen 018 Migraine with aura and witho ut status migrainosus, not intractable 09/10/2017 Obesity (BMI 30-39.9) 09/10/2017 Assessment & Plan (09/10/2017 2:45 PM CDT): Obesity is newly identified. Discussed the patient's BMI. The BMI is above average; BMI management plan is completed. General weight loss/lifestyle modification strategies discussed (elicit support from others; identify saboteurs; non-food rewards, etc). Immunizations Immunization Administration Dates Next Due Influenza, Trivalent, IM (MDV) 01/06/2014,2012 Influenza, Unspecified 01/06/2017 Surgical History Surgery Date Site/Laterality Comments TUBAL LIGATION ABLATION Medical History Medical History Date Comments Calculus of kidney Nephrolithias is Migraine Lumbar herniated disc Family History Medical History Relation Name Comments Coronary artery disease Father Mary Kate nary artery disease, premature; Diabetes Father Diabetes mellit us; Hodgkin's lymphoma Father Hodgkin's disease; Hypertension Father Hypertension; Cervical cancer Mother Cancer, cerv ical; Cause of : Cancer, cervical Graves' disease Sister Relation Name Status Comments Father Mother Sister Social History Tobacco Use Types Packs/Day Years Used Date Smoking Tobacco: Never Smokeless Tobacco: Never Alcohol Use Standard Drinks/Week Comments No 0 (1 standard drink = 0.6 oz pur e alcohol) Humiliation, Afraid, Rape, and Kick questionnair e Answer Date Recorded Within the last year, have y ou been afraid of your partner or ex-partner? No 01/09/2024 Within the last year, have y ou been humiliated or emotionally abused in other ways by your partner or ex-partner? No Within the last year, have y ou been kicked, hit, slapped, or otherwise physically hurt by your partner or ex-partner? No 01/09/2024 Within the last year, have y ou been raped or forced to have any kind of sexual activity by your partner or ex-partner? No 01/09/2024 AUDIT-C Answer Date Recorded Q1: How often do you have a drink containing alc ohol? 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 Gender Identity Not on file Sexual Orientation Not on file Obstetrics History Para Term AB IAB SAB Ectopic Multiple Livin g Live Births 2 2 2 2 2 Date Outcome GA Total Labor Labor/2nd/3rd Weight Sex Type Anes PTL Marycruz A1 A5 Name Clin 2001 Term 40w 0d M Living 2003 Term 40w 0d F Living Last Filed Vital Signs Vital Sign Reading Time Taken Comments Blood Pressure 124/86 01/09/2024 9:07 AM CDT Pulse 86 09/10/2017 2:25 PM CDT Temperature - - Respiratory Rate 14 09/10/2017 2:25 PM CDT Oxygen Saturation 95% 09/10/2017 2:25 PM CDT Inhaled Oxygen Concentration - - Weight 104.3 kg (230 lb) 01/09/2024 9:07 AM CDT Height 175.3 cm (5' 9) 01/09/2024 9:07 AM CDT Body Mass Index 33.97 01/09/2024 9:07 AM CDT Plan of Treatment Health Maintenance Due Date Last Done Comments Hepatitis C Screening 1980 DTaP/Tdap/Td Vaccine (1 - Tdap) 1991 Varicella Vaccines (1 of 2 - 13+ 2-dose series) 1993 Hepatitis B Screening 1998 HPV Vaccines (1 - 3-dose SCDM series) 2007 Breast Cancer Screening-Mammogram 10/08/2015 10/07/2014, 09/27/2014 Covid-19 Vaccine ( season) 2023 03/21/2021, 02/19/2021 Influenza Vaccine (#1) 2024 9, 01/06/2017, 01/06/2014, Additional history exists Cervical Cancer Screening 01/08/20252023, 09/27/2015, 09/27/2015 Depression Screening 01/08/2025 01/09/2024, 09/11/19 18 Regular Well Visit/Exam 18-64 01/08/2025 01/09/2024 Pneumococcal vaccine <65 Aged Out No longer eligible based on patient's age to complete this topic Procedures Procedure Name Priority Date/Time Associated Diagnosis Comments PAP AND HPV, REFLEX TO HPV GENOTYPES Routine 01/09/2024 9:51 AM CDT Well woman exam SCREENING MAMMOGRAM Routine 10/07/2014 1 1:16 AM CDT from Last 3 Months or Most Recently Relevant to Health Maintenance Results * Pap and HPV, reflex to HPV Genotypes (01/09/2024 9:51 AM CDT) Clinical indication Comment [facility] - 01 Comment:NEGATIVE FOR INTRAEP ITHELIAL LESION OR MALIGNANCY. Specimen adequacy: Comment [facility] - 01 Comment: Satisfactory for evaluation. Endocervical and/or squamous metaplastic cells (endocervical component) are present. Clinician provided ICD10 Comment [facility] 02 Comment:Z01.419 Performed by Comment [facility] - 01 Comment:Sumi Garvey, Cytotec hnologist (ASCP) . . [facility] - 01 Note: Comment [facility] 02 Comment: The Pap smear is a screening test designed to aid in the detection of premalignant and malignant conditions of the uterine cervix. It is not a diagnostic procedure and should not be used as the sole means of detecting cervical cancer. Both false-positive and false-negative reports do occur. Test methodology Comment [facility] 02 Comment: This liquid based ThinPrep(R) pap test was screened with the use of an image guided system. HPV Aptima Negative Negative [facility] 03 Comment: This nucleic acid amplification test detects fourteen high-risk HPV types (16,18,31,33,35,39,45,51,52,56,58,59,66,68) without differentiation. HPV Genotype Reflex Comment [facility] - 01 Comment:Criteria not met, HP V Genotype not performed. Thin prep-Endocervical 01/09/2024 9:51 AM CDT 01/09/2024 Narrative [facility] - 01/14/2024 12:12 PM CDT Performed at: - [facility] [address] [place], [place] [id number] Retail Shift Leader: Ovidio Cohen MD, Phone: [phone] Performed at: - [facility] [address] [id number] Retail Shift Leader: Zoila Ferrera MD, Phone: [phone] Performed at: 03 - [facility] [address] [id number] Retail Shift Leader: Zoila Ferrera MD, Phone: [phone] Specimen Comment: [id number] Specimen Comment: No. of containers..01 ThinPrep Vial Marquita Adkins NP LAB CYTOLOGY ORDERABLES Fin al Result [facility] - 01 LAB [facility] 02 [facility] 03 * Screening Mammogram (10/07/2014 11:16 AM CDT) Anatomical Region Laterality Modality Breast N/A Mammography 10/07/2014 11:1 6 AM CDT Narrative 10/07/2014 9:37 PM CDT Vm Mammogram Performed by: DR VALERO MAMM W SUZIE L Acc#: [id number] Annabella Mamm L Acc#: [id number] DATE OF EXAM: Oct 07 2014 CLINICAL HISTORY: Lump/mass left breast. RESULT: Tomosynthesis images in the craniocaudal projection and mediolateral projection. No mass is seen. Digital technology was employed plus computer-aided detection software (R2) was utilized in interpretation of these images. This facility utilizes a reminder system to notify patients of yearly mammograms. IMPRESSION: 1. NO BREAST NEOPLASM IDENTIFIED. SONOGRAM NEGATIVE. RECOMMEND PROCEEDING ON CLINICAL GROUNDS. NEGATIVE RESULTS SHOULD NOT DISSUADE ONE FROM BIOPSY OF A CLINICALLY PALPABLE SUSPICIOUS MASS. BI-RADS CATEGORY 1 NEGATIVE EXAM. PROCEED ON CLINICAL GROUNDS. Interpreting Physician: TOBI YUNG M.D. Read on: Oct 07 2014 11:16A Transcribed by: armand On: Oct 07 2014 2:35P Approved Electronically by: TOBI YUNG M.D. on: Oct 07 2014 9:37P Attending: MAGALY MEADE Requesting: DR MAGALY MEADE Requesting Fax: -- Attending Fax: -- Attending ID: [id number] Requesting ID: [id number] Report To 1 ID: [id number] Report To 1 Name: MAGALY MEADE Report To 1 FAX: -- NextGen Order #: Procedure Note Provider, MD Stewart - 08/10/2016 Vm Mammogram Performed by: DR VALERO MAMM W SUZIE L Acc#: [id number] Annablela Mamm L Acc#: [id number] DATE OF EXAM: Oct 07 2014 CLINICAL HISTORY: Lump/mass left breast. RESULT: Tomosynthesis images in the craniocaudal projection and mediolateralprojection. No mass is seen. Digital technology was employed pluscomputer-aided detection software (R2) was utilized in interpretation ofthese images. This facility utilizes a reminder system to notify patientsof yearly mammograms. IMPRESSION: 1. NO BREAST NEOPLASM IDENTIFIED. SONOGRAM NEGATIVE. RECOMMENDPROCEEDING ON CLINICAL GROUNDS. NEGATIVE RESULTS SHOULD NOT DISSUADE ONEFROM BIOPSY OF A CLINICALLY PALPABLE SUSPICIOUS MASS. BI-RADS CATEGORY 1NEGATIVE EXAM. PROCEED ON CLINICAL GROUNDS. Interpreting Physician: TOBI YUNG M.D. Read on: Oct 07 2014 11:16A Transcribed by: armand On: Oct 07 2014 2:35P Approved Electronically by: TOBI YUNG M.D. on: Oct 07 2014 9:37P Attending: MAGALY MEADE Requesting: DR MAGALY MEADE Requesting Fax: -- Attending Fax: -- Attending ID: [id number] Requesting ID: [id number] Report To 1 ID: [id number] Report To 1 Name: MAGALY MEADE Report To 1 FAX: -- NextGen Order #: Historical Provider MD PIERRE MAMMO PROCEDURES Dionna l Result from Last 3 Months or Most Recently Relevant to Health Maintenance Insurance [facility] CHO[address] [place] [address] [address] [place] [id number] Care Teams Residential Child Care Counselor Relationship Specialty Start Date End Date Tess Maldonado NP PCP - General Nurse Practitioner 08/02/20
[2024-11-16 08:09] LABS: Hematocrit 30.9 % (37.0-47.0); Hemoglobin 9.4 g/dL (12.0-15.0); Mean Corpuscular HGB Conc 30.4 g/dl (32-36); Mean Corpuscular Hemoglobin 24.3 pg (26-34); Mean Corpuscular Volume 79.8 fl (80-100); Platelet Count Result 249 k/mm3 (150-375); Red Blood Count 3.87 M/mm3 (4.2-5.4); White Blood Count 5.9 K/mm3 (4.5-10.0)
[2024-11-16 08:18] LABS: Hemoglobin A1C 4.7 % (<5.7)
[2024-11-16 08:26] LABS: Alanine Aminotransferase 15 U/L (6-35); Albumin Level 4.4 g/dL (3.5-5.1); Alkaline Phosphatase 55 U/L (38-126); Anion Gap 10 mmol/L (4-12); Aspartate Amino Transferase 29 U/L (14-36); Bilirubin,Total 0.2 mg/dL (0.2-1.3); Blood Urea Nitrogen 13 mg/dL (7-17); Calcium 9.7 mg/dL (8.4-10.2); Carbon Dioxide 22 mmol/L (22-30); Chloride 106 mmol/L (98-107); Cholesterol 154 mg/dL (0-200); Estimated Glomerular Filt Rate > 60; Glucose 96 mg/dL (65-110); HDL Direct 37 mg/dL; Potassium 3.8 mmol/L (3.4-5.0); Sodium 138 mmol/L (137-145); Total Protein 7.5 g/dL (6.3-8.2); Triglycerides 86 mg/dL (<150)
[2024-11-16 08:53] LABS: Thyroid Stimulating Hormone Reflex 1.470 uIU/mL (0.465-4.68)
[2024-11-17 14:08] LABS: ANA by IFA Rfx Titer/Pattern Negative (.)
== END 2024-11-16 07:46 | disposition home or self-care (01) ==
LOC: ANHLAB 07:46
PROVIDERS: PCP Nurse Practitioner Family; Visit Provider Nurse Practitioner Family
DX: Z13.0 Encounter for screening for diseases of the blood and blood-forming organs and certain disorders involving the immune mechanism (principal); Z13.1 Encounter for screening for diabetes mellitus; Z13.29 Encounter for screening for other suspected endocrine disorder; Z13.220 Encounter for screening for lipoid disorders
CPT/HCPCS: 36415; 80053; 80061; 83036; 84443; 85027; 86038

== ENCOUNTER 2024-11-18 07:39 | Outpatient (CLI) | payer BC, SELFPAY ==
--- OUTSIDE RECORDS SUMMARY | 2024-11-18 07:41 | XMS_ITS | Encounter Summary ---
Author Organization [facility] Address [address] [place] [address] Care Team Providers Care Biological Sciences Professor Name Role Phone Caden Maldonadoelle Jostin ESTRADA-RETAIL MARKETING COORDINATOR Primary Care Provider Encounter Details Date Type Department Care Team (Late st Contact Info) Description 12/25/2023 Lab Requisition [facility] - DermPath Lab [address] [facility] [place] [address] Linnette Cisse MD [address] [facility] [address] [place] [address] Social History Tobacco Use Types Packs/Day Years Used Date Smoking Tobacco: Never Smokeless Tobacco: Never Comments Unknown Sex and Gender Information Value Date Recorded Sex Assigned at Female 01/16/2023 2:21 AM CDT 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 Gender Identity Female 01/16/2023 2:21 AM CDT Sexual Orientation Not on file documented as of this encounter Plan of Treatment Not on file documented as of this encounter Procedures Procedure Name Priority Date/Time Associated Diagnosis Comments DERMATOPATHOLOGY Routine 12/25/2023 10:3 2 AM CDT documented in this encounter Results * DERMATOPATHOLOGY (12/25/2023 10:32 AM CDT) Case Report Dermatopathology Report Case: [id number] Authorizing Provider: Linnette Cisse MD Collected: 12/25/2023 10:32 AM Ordering Location: [facility] - Received: 12/26/2023 07:19 [...] characteristic determined by the Dermatopathology Laboratory at [facility], directed by Dr. Alfonso Maldonado. These tests need not be, and therefore are not, approved by the [place] Food and Drug Administration. The tests are used for clinical purposes. Billing Codes Specimen Charges Stain Charges 50346 1 11:29 AM CDT DERMATOPATHOLOGY LABORATORY Embedded Images 11:29 AM CDT DERMATOPATHOLOGY LABORATORY Pathology/Cytolo gy TISSUE SPECIMEN FROM SKIN / Unknown 12/25/2023 10:32 AM CDT 12/26/2023 7:19 AM CDT Linnette Cisse MD LAB - PATHOLOGY/CYTOLOGY OR DERABLES Final Result DERMATOPATHOLOGY LABORATORY [facility] - Department of Dermatology [address], [address] [phone] documented in this encounter Visit Diagnoses Not on filedocumented in this encounter Care Teams Biological Sciences Professor Relationship Specialty Start Date End Date Tess Maldonado, CARBON CUTTER-RETAIL MARKETING COORDINATOR [address] [place] [address] PCP - General Nurse Practitioner Family 01/29/23 documented as of this encounter
--- OUTSIDE RECORDS SUMMARY | 2024-11-18 07:41 | XMS_ITS | Clinical Summary ---
Author Organization [facility] [employer] Address [address] [facility] [place] [address] Care Team Providers Care Mailroom Courier Name Role Phone Tess Maldonado APRN-CUSTOM CLOTHIER Primary Care Provider Source Comments [facility] [employer] [facility],non-owned Affiliates and Associated Physician Practices is amultiple site organization consisting of ambulatory clinics and hospital sitesin [place], [place], [place] and [place]. This disclosure is being madepursuant to the Care Everywhere program and may not contain all information available regarding this patient. 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
--- OUTSIDE RECORDS SUMMARY | 2024-11-18 07:41 | XMS_ITS | Clinical Summary ---
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 of containers..01 ThinPrep Vial Marquita Adkins NP LAB CYTOLOGY ORDERABLES Fin al Result [facility] - 01 [facility] 02 [facility] 03 * Screening Mammogram (10/07/2014 11:16 AM CDT) Anatomical Region Laterality Modality Breast N/A Mammography 10/07/2014 11:1 6 AM CDT Narrative 10/07/2014 9:37 PM CDT Vm Mammogram Performed by: DR VALERO MAMM W SUZIE L Acc#: [id number] Annabella Mamm L Acc#: [id number] DATE OF EXAM: Oct 07 2014 CLINICAL [...] Fax: -- Attending Fax: -- Attending ID: [id number] Requesting ID: [id number] Report To 1 ID: [id number] Report To 1 Name: MAGALY MEADE Report To 1 FAX: -- NextGen Order #: Procedure Note Provider, MD Stewart - 08/10/2016 Vm Mammogram Performed by: DR VALERO MAMM W SUZIE L Acc#: [id number] Annabella Mamm L Acc#: [id number] DATE OF EXAM: Oct 07 2014 CLINICAL [...] Fax: -- Attending Fax: -- Attending ID: [id number] Requesting ID: [id number] Report To 1 ID: [id number] Report To 1 Name: MAGALY MEADE Report To 1 FAX: -- NextGen Order #: Historical Provider MD PIERRE MAMMO PROCEDURES Dionna l Result from Last 3 Months or Most Recently Relevant to Health Maintenance Insurance [facility] Address: [address] [address] [place], [place] [id number] [place] [address] [address] [place] [phone] Care Teams Senior Tax Analyst Relationship Specialty Start Date End Date Tess Maldonado NP PCP - General Nurse Practitioner 08/02/20
[2024-11-18 08:52] LABS: Iron 23 ug/dL (37-170)
[2024-11-18 09:08] LABS: Percent Iron Saturation 5 % (20-50)
[2024-11-18 09:34] LABS: Ferritin 4.91 ng/mL (6.24-137)
[2024-11-18 09:38] LABS: Vitamin B12 639.0 pg/mL (239-931)
== END 2024-11-18 07:40 | disposition home or self-care (01) ==
LOC: ANHLAB 07:40
PROVIDERS: PCP Nurse Practitioner Family; Visit Provider Nurse Practitioner Family
DX: D64.9 Anemia, unspecified (principal)
CPT/HCPCS: 36415; 82607; 82728; 83540; 83550